=== PATIENT | female | born 1990 | race African-American/Black ===

== ENCOUNTER 2017-08-22 00:05 | Emergency (ER) | payer MEDICAID, OTHER ==
[~2017-08-22] VITALS: Ht 165.1 cm; Wt 59.0 kg
[2017-08-22 00:12] VITALS: BP 129/88
== END 2017-08-22 01:00 | disposition home or self-care (01) ==
LOC: ER 00:05
DX: R06.03 Acute respiratory distress (principal); H53.8 Other visual disturbances; F41.9 Anxiety disorder, unspecified; F17.200 Nicotine dependence, unspecified, uncomplicated; J45.909 Unspecified asthma, uncomplicated; Z98.890 Other specified postprocedural states
CPT/HCPCS: 99281